=== PATIENT | male | born 1980 | race Caucasian/White ===

== ENCOUNTER 2018-06-18 07:08 | Day surgery (SDC) | payer OTHER ==
[~2018-06-18] VITALS: Ht 175.3 cm; Wt 96.8 kg
[~2018-06-18 07:08] MED LIST: ALBU90OI INH; Advil Pm Liqui1 EACH PO; BUDE10.22 INH; HYDACE5 PO; LOVA40 PO; Norco 5-325 Ta1 EACH PO; PROM25 PO; Percocet 5-3251 EACH PO; RANI150 PO; Ventolin/Prove6.7 GM INH; Zofran Odt4 MG SL
--- NOTE | 2018-06-18 07:49 | NUR ---
PATIENT GAVE PERMISSION FOR ME TO CARE FOR HIM TODAY 06/18/18. History, Chart, Medications and Allergies reviewed before start of procedure.Patient confirms NPO status and agrees with scheduled surgery. Lungs clear T/O to Auscultation.
--- NOTE | 2018-06-18 07:51 | NUR ---
STUDENT RN ASSISTING WITH PRE PROCEDURE CARE. AGREE WITH HER CHARTING AND CARE
--- NOTE | 2018-06-18 08:27 | NUR ---
FROM ENDO 1 TO STEP VSS PATIENT GROGGY. FAMILY AT BEDSIDE
--- NOTE | 2018-06-18 08:30 | NUR ---
06/18/18 0830 Ana Guevara [id number]- History, Chart, Medications and Allergies reviewed before start of procedure. Patient confirms NPO status and agrees with scheduled surgery. PATIENT DETERMINED TO BE ASA APPROPRIATE FOR PROPOFOL SEDATION PRIOR TO START OF PROCEDURE BY DR. CARVER. 3-LEAD EKG REVIEWED WITH PHYSICIAN PRIOR TO START OF PROCEDURE. MONITOR INTACT WITH CONTINUOUS PULSE OXIMETRY AND INTERMITTENT BP.
--- NOTE | 2018-06-18 08:56 | NUR ---
PATIENT DISCHARGED AT THIS TIME WITH ALL BELONGINGS AND DISCHARGE INSTRUCTIONS. ESCORTED OUT IN WC WITH RN
== END 2018-06-18 22:46 | disposition home or self-care (01) ==
LOC: ORSCMMR 07:08 → ORD 08:00 → ORSCMMR 08:00
PROVIDERS: Internal Medicine Gastroenterology
PROC: 0DB98ZX Excision of Duodenum, Via Natural or Artificial Opening Endoscopic, Diagnostic (ICD-10-PCS; principal; 2018-06-18 08:00)
PROC: 0DB68ZX Excision of Stomach, Via Natural or Artificial Opening Endoscopic, Diagnostic (ICD-10-PCS; principal; 2018-06-18 08:00)
PROC: 0DB48ZX Excision of Esophagogastric Junction, Via Natural or Artificial Opening Endoscopic, Diagnostic (ICD-10-PCS; principal; 2018-06-18 08:00)
DX: K92.0 Hematemesis (principal); K29.80 Duodenitis without bleeding; K21.9 Gastro-esophageal reflux disease without esophagitis; K70.10 Alcoholic hepatitis without ascites; Z87.11 Personal history of peptic ulcer disease; E78.00 Pure hypercholesterolemia, unspecified; J45.909 Unspecified asthma, uncomplicated; Z79.899 Other long term (current) drug therapy
CPT/HCPCS: 88305; 88342; J2250; J2704; J7120

== ENCOUNTER 2018-11-08 16:55 | Emergency (ER) | payer OTHER ==
[~2018-11-08] VITALS: Ht 172.7 cm; Wt 83.5 kg
[2018-11-08] MEDS ORDERED: Keflex500 MG PO (18:17)
== END 2018-11-08 18:20 | disposition home or self-care (01) ==
LOC: ER 16:55
DX: S61.512A Laceration without foreign body of left wrist, initial encounter (principal); Z87.891 Personal history of nicotine dependence; Z91.09 Other allergy status, other than to drugs and biological substances; Z79.51 Long term (current) use of inhaled steroids; Z79.899 Other long term (current) drug therapy; W26.0XXA Contact with knife, initial encounter
CPT/HCPCS: 12001; 73100; 90471; 90714; 99283-25

== ENCOUNTER 2019-01-02 10:26 | Emergency (ER) | payer OTHER ==
[~2019-01-02] VITALS: Ht 172.7 cm; Wt 86.2 kg
[~2019-01-02 10:26] MED LIST changes: +Keflex500 MG PO
[2019-01-02] MEDS ORDERED: Bactrim 400-801 EACH PO (11:03)
[2019-01-02] MEDS ORDERED: CEPH500 PO (11:03)
== END 2019-01-02 11:47 | disposition home or self-care (01) ==
LOC: ER 10:26
DX: L03.011 Cellulitis of right finger (principal); Z79.899 Other long term (current) drug therapy; Z87.891 Personal history of nicotine dependence
CPT/HCPCS: 99283

== ENCOUNTER 2020-03-05 22:22 | Emergency (ER) | payer OTHER ==
[~2020-03-05] VITALS: Ht 175.3 cm; Wt 95.2 kg
[~2020-03-05 22:22] MED LIST changes: +Bactrim 400-801 EACH PO; +CEPH500 PO
== END 2020-03-06 00:37 | disposition home or self-care (01) ==
LOC: ER 22:22
DX: M25.552 Pain in left hip (principal); G89.29 Other chronic pain; Z87.891 Personal history of nicotine dependence
CPT/HCPCS: 73502; 99283-25

== ENCOUNTER 2021-08-23 13:53 | Inpatient (IN) | payer OTHER ==
[~2021-08-23] VITALS: Ht 172.7 cm; Wt 83.9 kg
[2021-08-23 14:50] LABS: Hematocrit 49.3 % (37.0-53.0); Hemoglobin 16.3 g/dL (13.5-17.5); Mean Corpuscular HGB 30.8 pg (26.0-34.0); Mean Corpuscular HGB Conc 33.1 g/dL (31.5-36.5); Mean Corpuscular Volume 93 fL (80-100); Platelet Count 140 K/mm3 (150-400); RDW Coefficient Variation 12.5 % (11.7-14.2); Red Blood Cell Count 5.29 M/mm3 (4.30-5.90)
[2021-08-23 14:52] LABS: Mean Platelet Volume 13.2 fL (9.1-12.4)
[2021-08-23 15:08] LABS: Albumin/Globulin Ratio 0.9 (0.8-1.8); Bilirubin, Total 0.9 mg/dL (0.1-1.0); Bun/Creatinine Ratio 11.8 (12.0-20.0); Calcium, Blood 9.2 mg/dL (8.5-10.1); Creatinine, Blood 0.93 mg/dL (0.60-1.20); Globulin, Blood 4.3 g/dL (2.2-4.0); Potassium, Blood 4.4 mmol/L (3.5-5.5); Total Protein, Blood 8.3 g/dL (6.4-8.2)
[2021-08-23 15:18] LABS: BASOPHILS PERCENT MAN 0 % (0-2); EOSINOPHILS ABSOLUTE MAN 0.14 K/mm3 (0.00-0.68); EOSINOPHILS PERCENT MAN 1 % (0-6); LYMPHOCYTES PERCENT MAN 15 % (21-46); MONOCYTES ABSOLUTE MAN 1.32 K/mm3 (0.16-1.47); MONOCYTES PERCENT MAN 9 % (4-13); NEUTROPHILS ABSOLUTE MAN 11.02 K/mm3 (1.96-9.15); SEG NEUTROPHILS PERCENT MAN 75 % (41-73); TOTAL CELLS COUNTED 100
[2021-08-23 16:00] LABS: Source, Urine Clean Catch
[2021-08-23 16:05] LABS: Appearance, Urine Clear (Clear); Bilirubin, Urine Neg (Neg); Blood, Urine Neg (Neg); Color, Urine Yellow (P-Yellow); Glucose Qualitative, Urine Neg (Neg); Ketones, Urine Neg (Neg); Leukocyte Esterase, Urine Neg (Neg); Nitrite, Urine Neg (Neg); Protein, Urine 2+ (Neg); Specific Gravity, Urine 1.025 (1.003-1.022); Urobilinogen, Urine NORM (Normal)
[2021-08-23 16:31] LABS: Red Blood Cells, Urine 0-2 /hpf (0-2); White Blood Cells, Urine 0-2 /hpf (0-5)
[2021-08-23 16:32] LABS: Bacteria Few /hpf; Mucus Light (0-Heavy); Squamous Epithelial Cells Rare /hpf (Few)
[2021-08-23] MEDS ORDERED: ALBU90OI INH (19:42)
[2021-08-23] MEDS ORDERED: FLUT1DIS2 INH (19:43)
[2021-08-24 04:32] LABS: BASOPHILS ABSOLUTE AUTO 0.02 K/mm3 (0.00-0.23); BASOPHILS PERCENT AUTO 0 % (0-2); EOSINOPHILS ABSOLUTE AUTO 0.19 K/mm3 (0.00-0.68); EOSINOPHILS PERCENT AUTO 2 % (0-6); Hematocrit 42.5 % (37.0-53.0); Hemoglobin 13.7 g/dL (13.5-17.5); IMMATURE GRAN ABSOLUTE AUTO 0.04 K/mm3 (0.00-0.10); IMMATURE GRAN PERCENT AUTO 0 % (0-1); LYMPHOCYTES ABSOLUTE AUTO 2.12 K/mm3 (0.84-5.20); LYMPHOCYTES PERCENT AUTO 22 % (21-46); MONOCYTES ABSOLUTE AUTO 0.94 K/mm3 (0.16-1.47); MONOCYTES PERCENT AUTO 10 % (4-13); Mean Corpuscular HGB 30.7 pg (26.0-34.0); Mean Corpuscular HGB Conc 32.2 g/dL (31.5-36.5); Mean Corpuscular Volume 95 fL (80-100); NEUTROPHILS ABSOLUTE AUTO 6.15 K/mm3 (1.96-9.15); NEUTROPHILS PERCENT AUTO 65 % (41-73); Platelet Count 119 K/mm3 (150-400); RDW Coefficient Variation 12.4 % (11.7-14.2); RDW Standard Deviation 43.8 fL (35.1-46.3); Red Blood Cell Count 4.46 M/mm3 (4.30-5.90); White Blood Cell Count 9.46 K/mm3 (4.00-11.30)
[2021-08-24 04:50] LABS: Bun/Creatinine Ratio 13.9 (12.0-20.0); Calcium, Blood 8.6 mg/dL (8.5-10.1); Creatinine, Blood 0.79 mg/dL (0.60-1.20); Potassium, Blood 3.6 mmol/L (3.5-5.5)
--- NOTE | 2021-08-24 05:20 | NUR ---
SHIFT SUMMARY ADMIT THIS SHIFT WITH MICROPERF DIVERTICULITIS. NPO. IVF INFUSING PER ORDERS. 1 NORCO/DILAUDID/TORADOL FOR PAIN MANAGEMENT. INDEP TO RESTROOM. USES CALL LIGHT APPROPRIATELY.
--- NOTE | 2021-08-24 17:04 | NUR ---
SUMMARY: PT ADMITTED FOR DIVERTIC WITH MICRO-PERF. A/O, INDEP, VSS. PT HAS DENIED N/V TODAY. REPORTS "SOME PAIN" AND FEELS BETTER WHILE LYING DOWN. PT HAS DENIED NEED FOR NARCOTICS. FLUIDS AND ANTIBIOTICS INFUSED. PT GIVEN AN UPDATE THIS AFTERNOON OVER THE PHONE. PLAN IS FOR BOWEL REST AND IV ANTIBIOTICS. NO ACUTE SAFETY CONCERNS, WILL CTM AND REPORT TO DIANNA GARCIA.
--- NOTE | 2021-08-25 04:59 | NUR ---
ASSUMED CARE OF PT AT 1900 HOURS. NO ACUTE CHANGES THIS SHIFT. PT IS A&OX4, INDEPENDENT WITH CARES AND IS ABLE TO MAKE NEEDS KNOWN. RECEIVING IV ABX FOR DIVERTICULITIS. PT ADVANCED TO CLEAR LIQUID DIET, TOLERATING WELL. PT ABLE TO SLEEP 6+ HOURS THIS SHIFT. AMBULATES THE HALLWAY INDEPENTENTLY. WILL CONTINUE TO MONITOR THIS PT AND GIVE HANDOFF REPORT TO ONCOMING RN
[2021-08-25 05:39] LABS: BASOPHILS ABSOLUTE AUTO 0.03 K/mm3 (0.00-0.23); BASOPHILS PERCENT AUTO 0 % (0-2); EOSINOPHILS ABSOLUTE AUTO 0.25 K/mm3 (0.00-0.68); EOSINOPHILS PERCENT AUTO 3 % (0-6); Hematocrit 42.4 % (37.0-53.0); IMMATURE GRAN ABSOLUTE AUTO 0.05 K/mm3 (0.00-0.10); IMMATURE GRAN PERCENT AUTO 1 % (0-1); LYMPHOCYTES ABSOLUTE AUTO 1.91 K/mm3 (0.84-5.20); LYMPHOCYTES PERCENT AUTO 24 % (21-46); MONOCYTES ABSOLUTE AUTO 1.06 K/mm3 (0.16-1.47); MONOCYTES PERCENT AUTO 13 % (4-13); Mean Corpuscular HGB 31.3 pg (26.0-34.0); Mean Corpuscular Volume 95 fL (80-100); NEUTROPHILS ABSOLUTE AUTO 4.68 K/mm3 (1.96-9.15); NEUTROPHILS PERCENT AUTO 59 % (41-73); Platelet Count 129 K/mm3 (150-400); RDW Coefficient Variation 12.1 % (11.7-14.2); RDW Standard Deviation 42.4 fL (35.1-46.3); Red Blood Cell Count 4.48 M/mm3 (4.30-5.90); White Blood Cell Count 7.98 K/mm3 (4.00-11.30)
[2021-08-25 05:40] LABS: Mean Platelet Volume 13.3 fL (9.1-12.4)
[2021-08-25 05:56] LABS: Bun/Creatinine Ratio 10.1 (12.0-20.0); Creatinine, Blood 0.79 mg/dL (0.60-1.20); Potassium, Blood 3.8 mmol/L (3.5-5.5)
--- NOTE | 2021-08-25 18:00 | NUR ---
SHIFT SUMMARY NO ACUTE CHANGES THIS SHIFT. VSS ON RA. PATIENT DENIES PAIN T/O SHIFT. INDEPENDENT IN ROOM, TO BR AND AMBULATED HALLS MULTIPLE TIMES. TOLERATING FULL LIQUID DIET WELL, DENIES N/V. PATIENT VERY MOTIVATED TO DISCHARGE. CALLS APPROPRIATELY, WILL REPORT TO ONCOMING RN.
--- NOTE | 2021-08-26 05:45 | NUR ---
SHIFT CHANGE A/O X4- IND IN THE ROOM. TOLERATING FULL LIQUIDS AND REPORTS PASSING FLATUS. NO PAIN REPORTED IN ABDOMEN. VITAL SIGNS STABLE. NO ACUTE CHANGES OVER NIGHT. WILL CONTINUE TO MONITOR AND REPORT TO ONCOMING RN.
[2021-08-26] MEDS ORDERED: LEVFLO500 PO (09:53)
[2021-08-26] MEDS ORDERED: METR500 PO (09:54)
--- NOTE | 2021-08-26 10:10 | NUR ---
DISCHARGE PATIENT REPORTS NO ABDOMINAL PAIN. EATING, DRINKING, & VOIDING WELL. HAVING BM'S, REPORTS FLATUS. INDEPENDENTLY WALKING IN ROOM & HALLWAYS. DISCUSSED D/C INSTRUCTIONS, NO QUESTIONS/CONCERNS VERBALIZED. SENT DISCHARGE INSTRUCTIONS AND SCRIPTS WITH PATIENT. DECLINED W/C, AMBULATED OUT.
== END 2021-08-26 10:08 | disposition home or self-care (01) | DRG 392 ==
LOC: ER 13:53 → SURS 17:26
PROVIDERS: Physician Assistant; Surgery; ADMIT Surgery
DX: K57.20 Diverticulitis of large intestine with perforation and abscess without bleeding (principal); J45.909 Unspecified asthma, uncomplicated; E78.00 Pure hypercholesterolemia, unspecified; Z88.8 Allergy status to other drugs, medicaments and biological substances; Z79.51 Long term (current) use of inhaled steroids; Z79.891 Long term (current) use of opiate analgesic; Z79.899 Other long term (current) drug therapy; Z79.2 Long term (current) use of antibiotics; Z87.39 Personal history of other diseases of the musculoskeletal system and connective tissue; Z98.890 Other specified postprocedural states; Z90.49 Acquired absence of other specified parts of digestive tract; Z79.52 Long term (current) use of systemic steroids
CPT/HCPCS: 36415; 73630; 74177; 80048; 80053; 81001; 85025; 94640; 94664; 94760; 96365-59; 96375; 99285-25; A9270; J1170; J1650; J1885; J2543; J3010; J7030; J7040; J7120; Q9967

== ENCOUNTER → 2023-01-18 | Outpatient (CLI) | payer OTHER ==
[~2023-01-18] MED LIST changes: +FLUT1DIS2 INH; +LEVFLO500 PO; +METR500 PO
[2023-01-18 18:22] LABS: Bun/Creatinine Ratio 12.1 (12.0-20.0); Calcium, Blood 9.5 mg/dL (8.5-10.1); Creatinine, Blood 0.99 mg/dL (0.60-1.20); Potassium, Blood 4.4 mmol/L (3.5-5.5)
[2023-01-18 18:33] LABS: Hematocrit 51.3 % (37.0-53.0); Hemoglobin 17.2 g/dL (13.5-17.5); Mean Corpuscular HGB 31.2 pg (26.0-34.0); Mean Corpuscular HGB Conc 33.5 g/dL (31.5-36.5); Mean Corpuscular Volume 93 fL (80-100); Platelet Count 145 K/mm3 (150-400); RDW Coefficient Variation 13.2 % (11.7-14.2); RDW Standard Deviation 44.7 fL (35.1-46.3); Red Blood Cell Count 5.52 M/mm3 (4.30-5.90)
[2023-01-18 18:56] LABS: BASOPHILS ABSOLUTE AUTO 0.06 K/mm3 (0.00-0.23); BASOPHILS PERCENT AUTO 1 % (0-2); EOSINOPHILS ABSOLUTE AUTO 0.22 K/mm3 (0.00-0.68); EOSINOPHILS PERCENT AUTO 2 % (0-6); IMMATURE GRAN ABSOLUTE AUTO 0.02 K/mm3 (0.00-0.10); IMMATURE GRAN PERCENT AUTO 0 % (0-1); LYMPHOCYTES ABSOLUTE AUTO 2.34 K/mm3 (0.84-5.20); LYMPHOCYTES PERCENT AUTO 24 % (21-46); MONOCYTES ABSOLUTE AUTO 0.92 K/mm3 (0.16-1.47); MONOCYTES PERCENT AUTO 9 % (4-13); Mean Platelet Volume 13.2 fL (9.1-12.4); NEUTROPHILS ABSOLUTE AUTO 6.18 K/mm3 (1.96-9.15); NEUTROPHILS PERCENT AUTO 64 % (41-73); White Blood Cell Count 9.74 K/mm3 (4.00-11.30)
== END ==
LOC: LAB 18:12 → LAB SHORT 18:12
PROVIDERS: Physician Assistant Surgical
DX: R42 Dizziness and giddiness (principal)
CPT/HCPCS: 80048; 85025

== ENCOUNTER 2024-03-24 20:09 | Emergency (ER) | payer OTHER ==
[~2024-03-24] VITALS: Ht 175.3 cm; Wt 92.5 kg
[2024-03-24 20:15] VITALS: BP 154/109
[2024-03-24 20:42] LABS: Hematocrit 44.3 % (37.0-53.0); Hemoglobin 14.8 g/dL (13.5-17.5); Mean Corpuscular HGB 30.5 pg (26.0-34.0); Mean Corpuscular HGB Conc 33.4 g/dL (31.5-36.5); Mean Corpuscular Volume 91 fL (80-100); Platelet Count 159 K/mm3 (150-400); RDW Standard Deviation 43.8 fL (35.1-46.3); Red Blood Cell Count 4.85 M/mm3 (4.30-5.90)
[2024-03-24 20:45] LABS: Mean Platelet Volume 13.1 fL (9.1-12.4); White Blood Cell Count 6.92 K/mm3 (4.00-11.30)
[2024-03-24 20:55] LABS: Albumin, Blood 4.2 g/dL (3.4-5.0); Albumin/Globulin Ratio 1.1 (0.8-1.8); Bilirubin, Total 0.3 mg/dL (0.1-1.0); Bun/Creatinine Ratio 14.8 (12.0-20.0); Calcium, Blood 9.2 mg/dL (8.5-10.1); Creatinine, Blood 0.81 mg/dL (0.60-1.20); Globulin, Blood 3.8 g/dL (2.2-4.0); Potassium, Blood 4.1 mmol/L (3.5-5.5)
[2024-03-24 20:59] LABS: BAND PERCENT MAN 1 % (0-8); BASOPHILS ABSOLUTE MAN 0.06 K/mm3 (0.00-0.23); BASOPHILS PERCENT MAN 1 % (0-2); EOSINOPHILS ABSOLUTE MAN 0.06 K/mm3 (0.00-0.68); EOSINOPHILS PERCENT MAN 1 % (0-6); LYMPHOCYTES ABSOLUTE MAN 2.83 K/mm3 (0.84-5.20); LYMPHOCYTES PERCENT MAN 41 % (21-46); MONOCYTES ABSOLUTE MAN 0.69 K/mm3 (0.16-1.47); MONOCYTES PERCENT MAN 10 % (4-13); NEUTROPHILS ABSOLUTE MAN 3.25 K/mm3 (1.96-9.15); SEG NEUTROPHILS PERCENT MAN 46 % (41-73); TOTAL CELLS COUNTED 100
[2024-03-24] MEDS ORDERED: Ketorolac Tromethamine 15mg Vial IV ONE (21:15)
== END 2024-03-24 22:21 | disposition home or self-care (01) ==
LOC: ER 20:09
PROVIDERS: Physician Assistant
DX: S16.1XXA Strain of muscle, fascia and tendon at neck level, initial encounter (principal); M54.2 Cervicalgia; Z04.41 Encounter for examination and observation following alleged adult rape; X58.XXXA Exposure to other specified factors, initial encounter; Z88.8 Allergy status to other drugs, medicaments and biological substances; Z79.51 Long term (current) use of inhaled steroids; Z79.2 Long term (current) use of antibiotics; Z87.891 Personal history of nicotine dependence; Z79.899 Other long term (current) drug therapy
CPT/HCPCS: 70491; 80053; 80320; 85025; 96374-59; 99284-25; J1885; Q9967